=== PATIENT | female | born 1990 | race Caucasian/White ===

== ENCOUNTER 2016-04-29 04:38 | Emergency (ER) | payer OTHER ==
[2016-04-29] MEDS ORDERED: Sodium Chloride 0.9% 1000 ML 1,000 ML IV STA (05:00)
[2016-04-29] MEDS ORDERED: Sodium Chloride 0.9% 1000 ML 1,000 ML ONE (05:04)
[2016-04-29 05:08] LABS: BASOPHIL % 0.5 % (0.0-0.4); Eosinophil % 1.7 % (0.00-5.0); Granulocytes % 58.5 % (36.0-66.0); Lymphocytes % 31.3 % (24.0-44.0); Mean Cell Volume 89.5 fl (78-100); Mean Platelet Volume 10.3 fl (6-9.5); Platelet Count 307 K/mm3 (150-450); Red Blood Count 4.77 M/mm3 (4.1-5.4); Red Cell Distribution Width 12.5 % (11.5-14.0); White Blood Count 9.5 K/mm3 (4.0-10.5)
[2016-04-29 05:24] LABS: ANION GAP 16.5 MEQ/L (5-15); BLOOD UREA NITROGEN 5 mg/dL (9-20); CHLORIDE 109 mEq/L (98-107); Carbon Dioxide 26.1 mEq/L (21-32); Glucose 111 MG/DL (70-110); SODIUM 149 mEq/L (136-145)
[2016-04-29 05:26] LABS: ACETAMINOPHEN < 2.0 ug/ml (10-30)
[2016-04-29] MEDS ORDERED: Ativan 2 MG/1 ML VIAL IV ONE (05:36)
[2016-04-29] MEDS ORDERED: Klor Con 10 MEQ PO ONE ×2 (05:39→05:41)
--- NOTE | 2016-04-29 05:39 | ERPHSYRPT ---
- History of Present Illness Time Seen by Provider: 04/29/16 05:37 Source: patient Exam Limitations: no limitations Patient Subjective Stated Complaint: Pt C/O anxiety attack started approx 0400. Sts drinking ETOH from 2300 - 0200. Sts anxiety attack started after going home. Triage Nursing Assessment: Pt alert, oriented, answers all questions appropriately. Skin p/w/d, resps non-labored. Pt able to transfer self cot to bed. Lung sounds CTA bilat. Heart RRR. ABD ANT x 4 quadrants, + bowel sounds noted. Physician History: Pt C/O anxiety attack started approx 0400. Sts drinking ETOH from 0 - 0200. Sts anxiety attack started after going home. Patient is not suicidal or homicidal Timing/Duration: today Severity of Symptoms-Max: moderate Severity of Symptoms-Current: moderate Context related to: other (alcohol ingestion) Associated Symptoms: anxiety, No confused, No frustrated, No hostile, No hallucinating, No impaired concentration, No paranoid, No suicidal ideation Allergies/Adverse Reactions: No Known Drug Allergies Allergy (Unverified 04/29/16 04:48) Home Medications: No Reportable Medications [No Reported Medications] 04/29/16 [History] Immunizations Up to Date: Yes - Past Medical History Pertinent Past Medical History: Yes Psycho-Social History: Anxiety - Past Surgical History Past Surgical History: No - Social History Smoking Status: Never smoker Exposure to second hand smoke: No Drug Use: none Patient Lives Alone: No - Review of Systems Constitutional: No Fever, No Chills Eyes: No Symptoms Ears, Nose, & Throat: No Symptoms Respiratory: No Cough, No Dyspnea Cardiac: No Chest Pain, No Edema, No Syncope Abdominal/Gastrointestinal: No Abdominal Pain, No Nausea, No Vomiting, No Diarrhea Genitourinary Symptoms: No Dysuria Musculoskeletal: No Back Pain, No Neck Pain Skin: No Rash Neurological: No Dizziness, No Focal Weakness, No Sensory Changes Psychological: Anxiety Endocrine: No Symptoms All Other Systems: Reviewed and Negative - Nursing Vital Signs Nursing Vital Signs: Initial Vital Signs Temperature 99.1 F Temperature Source Oral Pulse Rate 98 Respiratory Rate 16 Blood Pressure [Right Arm] 115/74 Pain Intensity 0 - Physical Exam General Appearance: no apparent distress Eyes, Ears, Nose, Throat Exam: normal ENT inspection, moist mucous membranes Neck Exam: normal inspection, non-tender, supple Respiratory Exam: normal breath sounds, lungs clear, No respiratory distress Cardiovascular Exam: regular rate/rhythm, No edema Gastrointestinal/Abdominal Exam: soft, No tenderness, No distention Extremities Exam: normal inspection, normal range of motion, No evidence of injury, No edema Current Suicidality: denies suicide plan Neurological Exam: alert, tentmaker II-XII nml as tested, oriented x 3 Skin Exam: normal color, warm, dry, No rash SpO2: 98 Oxygen Delivery: Room Air - Course Nursing assessment & vital signs reviewed: Yes Ordered Tests: Active Orders 24 hr Category Date Time Status ACETAMINOPHEN Stat Lab 04/29/16 05:05 Completed ALCOHOL [Ethyl Alcohol,Urine] Stat Lab 04/29/16 05:48 Ordered BMP Stat Lab 04/29/16 05:05 Completed CBC W DIFF Stat Lab 04/29/16 05:05 Completed HCG QUALITATIVE,SERUM Stat Lab 04/29/16 05:05 Completed UA Stat Lab 04/29/16 05:01 Ordered Urine Triage Profile Stat Lab 04/29/16 05:01 Ordered Medication Summary Generic Name Dose Route Start Last Admin Trade Name Freq PRN Reason Stop Dose Admin Sodium Chloride 1,000 mls @ 999 mls/hr 04/29/16 05:00 04/29/16 05:05 Sodium Chloride 0.9% 1000 Ml IV 04/29/16 06:00 999 mls/hr .Q1H1M STA Administration Discontinued Medications Generic Name Dose Route Start Last Admin Trade Name Freq PRN Reason Stop Dose Admin Sodium Chloride Confirm 04/29/16 05:04 Sodium Chloride 0.9% 1000 Ml Administered 04/29/16 05:05 Dose 1,000 mls @ ud .ROUTE .STK-MED ONE Lorazepam 2 mg 04/29/16 05:36 04/29/16 05:43 Ativan 2 Mg/1 Ml Vial IV 04/29/16 05:37 2 mg STAT ONE Administration Lorazepam Confirm 04/29/16 05:41 Ativan 2 Mg/1 Ml Vial Administered 04/29/16 05:42 Dose 2 mg .ROUTE .STK-MED ONE Potassium Chloride 50 meq 04/29/16 05:39 04/29/16 05:43 Klor Con 10 Meq PO 04/29/16 05:40 50 meq STAT ONE Administration Potassium Chloride Confirm 04/29/16 05:41 Klor Con 10 Meq Administered 04/29/16 05:42 Dose 50 meq PO .STK-MED ONE Lab/Rad Data: Laboratory Result Diagrams 04/29/16 05:05 04/29/16 05:05 Laboratory Results 04/29/16 04/29/16 04/29/16 Range/Units 05:05 05:05 05:05 WBC 9.5 (4.0-10.5) K/mm3 RBC 4.77 (4.1-5.4) M/mm3 Hgb 14.8 (12.0-16.0) gm/dl Hct 42.7 (35-47) % MCV 89.5 (78-100) fl MCH 31.0 (26-32) pg MCHC 34.7 (32-36) g/dl RDW 12.5 (11.5-14.0) % Plt Count 307 (150-450) K/mm3 MPV 10.3 H (6-9.5) fl Gran % 58.5 (36.0-66.0) % Lymphocytes % 31.3 (24.0-44.0) % Monocytes % 8.0 (0.0-12.0) % Eosinophils % 1.7 (0.00-5.0) % Basophils % 0.5 (0.0-0.4) % Basophils # 0.05 (0-0.4) Sodium 149 H (136-145) mEq/L Potassium 3.0 L* (3.5-5.1) mEq/L Chloride 109 H (98-107) mEq/L Carbon Dioxide 26.1 (21-32) mEq/L Anion Gap 16.5 H (5-15) MEQ/L BUN 5 L (9-20) mg/dL Creatinine 0.95 (0.55-1.30) mg/dl Estimated GFR > 60 ML/MIN Glucose 111 H (70-110) MG/DL Calcium 8.8 (8.5-10.1) mg/dL Serum , Qual NEGATIVE (Negative) Acetaminophen < 2.0 L (10-30) ug/ml - Progress Progress: improved Counseled pt/family regarding: drug and/or alcohol abuse, lab results, diagnosis , need for follow-up, smoking cessation - Departure Time of Disposition: 05:50 Departure Disposition: Home Clinical Impression: Panic attack as reaction to stress, Hypokalemia with normal acid-base balance Condition: Stable Critical Care Time: Yes Critical Care Time(excluding separately billable procedures): 30-74 minutes Referrals: BARBARA PINON NP [Primary Care Provider] - Instructions: Anxiety -- Adult Additional Instructions: Please stay away from alcohol, or any other illicit drug use. Follow-up with your primary care physician for further management of your anxiety related problems.
[2016-04-29] MEDS ORDERED: Ativan 2 MG/1 ML VIAL ONE (05:41)
[2016-04-29 06:04] LABS: Collection Type CLEAN CATCH
[2016-04-29 06:05] LABS: COMPLETE URINE MICROSCOPIC? NO
[2016-04-29 06:44] VITALS: BP 115/78; PULSE 78; O2SAT 98
== END 2016-04-29 06:45 | disposition home or self-care (01) ==
LOC: ED 04:38
DX: F41.0 Panic disorder [episodic paroxysmal anxiety] (principal); F43.9 Reaction to severe stress, unspecified; E87.6 Hypokalemia
CPT/HCPCS: 36415; 80048; 80307; 80320; 81002; 83986; 84703; 85025; 96360; 96374; 99284; G0481; J2060; A9270-GY

== ENCOUNTER 2017-01-18 00:06 | Emergency (ER) | payer OTHER ==
[2017-01-18] MEDS ORDERED: Zofran 4 MG/2 ML VIAL IV ONE (00:24)
[2017-01-18] MEDS ORDERED: Sodium Chloride 0.9% 1000 ML 1,000 ML IV STA ×2 (00:24→01:23)
[2017-01-18] MEDS ORDERED: TORAdol 30 mg Injection IV ONE (00:24)
[2017-01-18 00:26] VITALS: PULSE 80; O2SAT 98
[2017-01-18] MEDS ORDERED: TORAdol 30 mg Injection ONE (00:29)
[2017-01-18] MEDS ORDERED: Sodium Chloride 0.9% 1000 ML 1,000 ML ONE ×2 (00:29→01:23)
[2017-01-18] MEDS ORDERED: Zofran 4 MG/2 ML VIAL ONE (00:29)
--- NOTE | 2017-01-18 00:31 | ERPHSYRPT ---
- History of Present Illness Time Seen by Provider: 01/18/17 00:20 Historian: patient Exam Limitations: no limitations Patient Subjective Stated Complaint: Abdominal pain Triage Nursing Assessment: Presents to the ED with complaints abdominal pain. Pt states pain began at approximately 1800 with mild onset, worsening when she woke up approximately an hour ago. Pt states hx of colitis. Pt states pain is similar to colitis pain, but worse pain than normal. Physician History: Pt with a History of "Colitis" woke up 1 hour ago with severe abdominal pain, nausea, denies vomiting, diarrhea, fever, chills, cough, other complaints. She states, she had Colonoscopy 4 years ago, but never had surgery, denies taking any medications except for Anxiety. Timing/Duration: hour(s) (1) Activities at Onset: none Quality: cramping Abdominal Pain Onset Location: periumbilical Pain Radiation: no radiation Severity of Pain-Max: severe Severity of Pain-Current: severe Modifying Factors: Improves With: nothing Associated Symptoms: nausea Previous symptoms: same symptoms as today, other (History of "Colitis") Allergies/Adverse Reactions: No Known Drug Allergies Allergy (Unverified 04/29/16 04:48) Hx Tetanus, Diphtheria Vaccination/Date Given: Yes Hx Influenza Vaccination/Date Given: No Hx Pneumococcal Vaccination/Date Given: No Immunizations Up to Date: No - Review of Systems Constitutional: No Symptoms Abdominal/Gastrointestinal: Abdominal Pain, Nausea All Other Systems: Reviewed and Negative - Past Medical History Pertinent Past Medical History: Yes GI Medical History: Colitis Psycho-Social History: Anxiety, Depression - Past Surgical History Past Surgical History: No Neuro Surgical History: No Pertinent History Cardiac: No Pertinent History Respiratory: No Pertinent History Gastrointestinal: No Pertinent History Genitourinary: No Pertinent History Musculoskeletal: No Pertinent History Female Surgical History: No Pertinent History - Social History Smoking Status: Never smoker Exposure to second hand smoke: No Drug Use: none Patient Lives Alone: Yes - Female History Hx Last Menstrual Period: 12/20/2016 Hx Now: No - Nursing Vital Signs Nursing Vital Signs: Initial Vital Signs Temperature 97.6 F 01/18/17 00:15 Pulse Rate 80 01/18/17 00:15 Respiratory Rate 18 01/18/17 00:15 Blood Pressure 116/60 01/18/17 00:15 O2 Sat by Pulse Oximetry 98 01/18/17 00:15 Pain Scale Pain Intensity 7 - Physical Exam General Appearance: no apparent distress Eye Exam: eyes nml inspection Ears, Nose, Throat Exam: normal ENT inspection, pharynx normal Neck Exam: normal inspection, non-tender, supple Respiratory Exam: normal breath sounds, lungs clear, airway intact, No chest tenderness Cardiovascular Exam: regular rate/rhythm, normal heart sounds, normal peripheral pulses, No murmur Gastrointestinal/Abdomen Exam: soft, normal bowel sounds, tenderness (diffuse), No distention, No mass, No guarding, No ecchymosis, No rebound, No hernia Back Exam: normal inspection, No CVA tenderness Extremity Exam: normal inspection Neurologic Exam: alert, oriented x 3, cooperative, normal mood/affect Skin Exam: normal color, warm, dry, No rash Lymphatic Exam: No adenopathy SpO2 Interpretation: normal SpO2: 98 Oxygen Delivery: Room Air - CT Exams Abdomen/Pelvis CT Interpretation: Other (Enterocolitis) Ordered Tests: Active Orders 24 hr Category Date Time Status Clean Catch Urine Specimen STAT Care 01/18/17 00:24 Active IV Insertion STAT Care 01/18/17 00:24 Active NPO (ED) STAT Care 01/18/17 00:24 Active ABDOMEN AND PELVIS W CONTRAST [CT] Stat Exams 01/18/17 00:25 Taken CBC W DIFF Stat Lab 01/18/17 00:30 Completed CMP Stat Lab 01/18/17 00:30 Completed HCG QUALITATIVE,SERUM Stat Lab 01/18/17 00:30 Completed HCG,QUALITATIVE URINE Stat Lab 01/18/17 Uncollected LIPASE Stat Lab 01/18/17 00:30 Completed Lactic Acid Stat Lab 01/18/17 00:40 Completed UA W/RFX UR CULTURE Stat Lab 01/18/17 02:10 Completed Medication Summary Generic Name Dose Route Start Last Admin Trade Name Freq PRN Reason Stop Dose Admin Sodium Chloride 1,000 mls @ 999 mls/hr 01/18/17 01:23 01/18/17 01:27 Sodium Chloride 0.9% 1000 Ml IV 01/18/17 02:23 999 mls/hr .Q1H1M STA Administration Discontinued Medications Generic Name Dose Route Start Last Admin Trade Name Freq PRN Reason Stop Dose Admin Sodium Chloride 1,000 mls @ 999 mls/hr 01/18/17 00:24 01/18/17 00:30 Sodium Chloride 0.9% 1000 Ml IV 01/18/17 01:24 999 mls/hr .Q1H1M STA Administration Sodium Chloride Confirm 01/18/17 00:29 Sodium Chloride 0.9% 1000 Ml Administered 01/18/17 00:30 Dose 1,000 mls @ ud .ROUTE .STK-MED ONE Sodium Chloride Confirm 01/18/17 01:23 Sodium Chloride 0.9% 1000 Ml Administered 01/18/17 01:24 Dose 1,000 mls @ ud .ROUTE .STK-MED ONE Ketorolac Tromethamine 30 mg 01/18/17 00:24 01/18/17 00:30 Toradol 30 Mg Injection IV 01/18/17 00:25 30 mg STAT ONE Administration Ketorolac Tromethamine Confirm 01/18/17 00:29 Toradol 30 Mg Injection Administered 01/18/17 00:30 Dose 30 mg .ROUTE .STK-MED ONE Ondansetron HCl 4 mg 01/18/17 00:24 01/18/17 00:30 Zofran 4 Mg/2 Ml Vial IV 01/18/17 00:25 4 mg STAT ONE Administration Ondansetron HCl Confirm 01/18/17 00:29 Zofran 4 Mg/2 Ml Vial Administered 01/18/17 00:30 Dose 4 mg .ROUTE .STK-MED ONE Lab/Rad Data: Laboratory Result Diagrams 01/18/17 00:30 01/18/17 00:30 Laboratory Results 01/18/17 01/18/17 01/18/17 Range/Units 02:10 00:40 00:30 WBC (4.0-10.5) K/mm3 RBC (4.1-5.4) M/mm3 Hgb (12.0-16.0) gm/dl Hct (35-47) % MCV (78-100) fl MCH (26-32) pg MCHC (32-36) g/dl RDW (11.5-14.0) % Plt Count (150-450) K/mm3 MPV (6-9.5) fl Gran % (36.0-66.0) % Lymphocytes % (24.0-44.0) % Monocytes % (0.0-12.0) % Eosinophils % (0.00-5.0) % Basophils % (0.0-0.4) % Basophils # (0-0.4) Sodium (136-145) mEq/L Potassium (3.5-5.1) mEq/L Chloride (98-107) mEq/L Carbon Dioxide (21-32) mEq/L Anion Gap (5-15) MEQ/L BUN (9-20) mg/dL Creatinine (0.55-1.30) mg/dl Estimated GFR ML/MIN Glucose (70-110) MG/DL Lactic Acid 1.4 (0.4-2.0) Calcium (8.5-10.1) mg/dL Total Bilirubin (0.2-1.0) mg/dL AST (15-37) U/L ALT (12-78) U/L Alkaline Phosphatase (46-116) U/L Serum Total Protein (6.4-8.2) gm/dL Albumin (3.4-5.0) g/dL Lipase (73-393) U/L Serum , Qual NEGATIVE (Negative) Ur Collection Type CLEAN CATCH Urine Color LT.YELLOW (YELLOW) Urine Appearance CLEAR (CLEAR) Urine pH 6.5 (5-6) Ur Specific [place] 1.010 (1.005-1.025) Urine Protein NEGATIVE (Negative) Urine Ketones NEGATIVE (NEGATIVE) Urine Blood NEGATIVE (0-5) Subhash/ul Urine Nitrite NEGATIVE (NEGATIVE) Urine Bilirubin NEGATIVE (NEGATIVE) Urine Urobilinogen NORMAL (0-1) mg/dL Ur Leukocyte Esterase NEGATIVE (NEGATIVE) Urine Culture Reflexed NO (NO) Urine Glucose NEGATIVE (NEGATIVE) mg/dL Specimen Received 01/18/17 0210 01/18/17 01/18/17 Range/Units 00:30 00:30 WBC 9.8 (4.0-10.5) K/mm3 RBC 4.62 (4.1-5.4) M/mm3 Hgb 14.4 (12.0-16.0) gm/dl Hct 41.7 (35-47) % MCV 90.3 (78-100) fl MCH 31.2 (26-32) pg MCHC 34.5 (32-36) g/dl RDW 12.5 (11.5-14.0) % Plt Count 262 (150-450) K/mm3 MPV 10.2 H (6-9.5) fl Gran % 45.4 (36.0-66.0) % Lymphocytes % 38.9 (24.0-44.0) % Monocytes % 9.7 (0.0-12.0) % Eosinophils % 5.3 H (0.00-5.0) % Basophils % 0.7 (0.0-0.4) % Basophils # 0.07 (0-0.4) Sodium 140 (136-145) mEq/L Potassium 3.4 L (3.5-5.1) mEq/L Chloride 104 (98-107) mEq/L Carbon Dioxide 28.1 (21-32) mEq/L Anion Gap 11.2 (5-15) MEQ/L BUN 8 L (9-20) mg/dL Creatinine 1.05 (0.55-1.30) mg/dl Estimated GFR > 60 ML/MIN Glucose 103 (70-110) MG/DL Lactic Acid (0.4-2.0) Calcium 9.2 (8.5-10.1) mg/dL Total Bilirubin 0.40 (0.2-1.0) mg/dL AST 15 (15-37) U/L ALT 12 (12-78) U/L Alkaline Phosphatase 66 (46-116) U/L Serum Total Protein 7.5 (6.4-8.2) gm/dL Albumin 4.4 (3.4-5.0) g/dL Lipase 230 (73-393) U/L Serum , Qual (Negative) Ur Collection Type Urine Color (YELLOW) Urine Appearance (CLEAR) Urine pH (5-6) Ur Specific [place] (1.005-1.025) Urine Protein (Negative) Urine Ketones (NEGATIVE) Urine Blood (0-5) Subhash/ul Urine Nitrite (NEGATIVE) Urine Bilirubin (NEGATIVE) Urine Urobilinogen (0-1) mg/dL Ur Leukocyte Esterase (NEGATIVE) Urine Culture Reflexed (NO) Urine Glucose (NEGATIVE) mg/dL Specimen Received - Progress Progress: improved Progress Note: 01/18/17 02:24 Afebrile, pain improved, did not vomit, feels better altogether. I discussed out findings with her and suggested close follow up with her PCP and Gastroenterology, she agreed, will return if any worsening, vomiting or high fever> 102 F. - Departure Time of Disposition: 02:25 Departure Disposition: Home Clinical Impression: Enterocolitis Condition: Stable Critical Care Time: No Referrals: CARMEN TAFOYA [Primary Care Provider] - Instructions: Abdominal Pain-Adult, Crohn's Disease Additional Instructions: Rest x 2-3 days, drink plenty of fluids, return if severe pain, vomiting, fever > 102F! Follow up with your PCP in 2-3 days! Prescriptions: Dicyclomine HCl 20 mg [Bentyl 20 mg] 20 mg PO TID PRN PRN 5 Days #15 tablet PRN Reason: Pain
[2017-01-18 00:41] LABS: BASOPHIL % 0.7 % (0.0-0.4); Eosinophil % 5.3 % (0.00-5.0); Granulocytes % 45.4 % (36.0-66.0); Lymphocytes % 38.9 % (24.0-44.0); Mean Cell Volume 90.3 fl (78-100); Mean Corpuscular Hemoglobin 31.2 pg (26-32); Mean Platelet Volume 10.2 fl (6-9.5); Monocytes % 9.7 % (0.0-12.0); Platelet Count 262 K/mm3 (150-450); Red Blood Count 4.62 M/mm3 (4.1-5.4); Red Cell Distribution Width 12.5 % (11.5-14.0); White Blood Count 9.8 K/mm3 (4.0-10.5)
[2017-01-18 00:58] LABS: ALBUMIN 4.4 g/dL (3.4-5.0); ALKALINE PHOSPHATASE 66 U/L (46-116); ANION GAP 11.2 MEQ/L (5-15); BLOOD UREA NITROGEN 8 mg/dL (9-20); CHLORIDE 104 mEq/L (98-107); Carbon Dioxide 28.1 mEq/L (21-32); Glucose 103 MG/DL (70-110); LIPASE 230 U/L (73-393); Potassium 3.4 mEq/L (3.5-5.1); SGOT/AST 15 U/L (15-37); SGPT/ALT 12 U/L (12-78); SODIUM 140 mEq/L (136-145); Total Protein 7.5 gm/dL (6.4-8.2)
[2017-01-18 02:11] LABS: ADD URINE CULTURE? NO (NO); Bilirubin NEGATIVE (NEGATIVE); Blood NEGATIVE Ery/ul (0-5); COMPLETE URINE MICROSCOPIC? NO; Collection Type CLEAN CATCH; Glucose NEGATIVE (NEGATIVE); Leukocyte Esterase NEGATIVE (NEGATIVE)
[2017-01-18 02:40] VITALS: BP 112/70
--- NOTE | 2017-01-18 08:45 | XRAY ---
Indication: Left lower pelvic pain. History colitis. Multiple contiguous axial images obtained through the abdomen and pelvis using 80 cc Isovue 370 contrast only. Comparison: None Lung bases clear. Heart is not enlarged. Noncontrasted stomach and bowel loops appear nonobstructed. Normal appendix. There is mild wall thickening of the left hemicolon with minimal stranding favoring colitis. No free fluid/air. Remaining liver, gallbladder, pancreas, spleen, adrenal glands, kidneys, ureters, bladder, uterus, and aorta appear unremarkable. No pathologic retroperitoneal lymphadenopathy. Osseous structures intact. No ventral/inguinal hernias. Impression: Mild left hemicolon wall thickening with minimal stranding favoring colitis. Comment: Preliminary interpretation was made by [facility]. No critical discrepancy. CT DI 9.69
== END 2017-01-18 02:40 | disposition home or self-care (01) ==
LOC: ED 00:06
DX: K52.9 Noninfective gastroenteritis and colitis, unspecified (principal); R10.9 Unspecified abdominal pain; R11.0 Nausea
CPT/HCPCS: 36000; 36415; 74177; 80053; 81002; 83605; 83690; 84703; 85025; 96360; 96361; 96374; 96375; 99283; J1885; J2405

== ENCOUNTER 2017-04-13 18:44 | Emergency (ER) | payer OTHER ==
[2017-04-13] MEDS ORDERED: Zofran 4 MG/2 ML VIAL IV ONE (19:27)
[2017-04-13] MEDS ORDERED: SUBLIMAZE 100 MCG/2 ML IV ONE (19:27)
[2017-04-13] MEDS ORDERED: Sodium Chloride 0.9% 500 ML 500 ML IV SCH (19:45)
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
[2017-04-13 19:51] LABS: BASOPHIL % 0.6 % (0.0-0.4); Basophil (Absolute #) 0.07 (0-0.4); Eosinophil % 1.4 % (0.00-5.0); Eosinophil (Absolute #) 0.16 (0-0.5); Granulocytes % 73.1 % (36.0-66.0); Hematocrit 44.3 % (35-47); Hemoglobin 15.4 gm/dl (12.0-16.0); Lymphocyte (Absolute #) 1.98 (1.0-4.6); Lymphocytes % 17.2 % (24.0-44.0); Mean Corpuscular Hemoglobin 31.6 pg (26-32); Mean Corpuscular Hgb Concent. 34.8 g/dl (32-36); Mean Platelet Volume 9.7 fl (6-9.5); Monocyte (Absolute #) 0.89 (0.0-1.3); Monocytes % 7.7 % (0.0-12.0); Platelet Count 271 K/mm3 (150-450); Red Blood Count 4.87 M/mm3 (4.1-5.4); Red Cell Distribution Width 12.9 % (11.5-14.0); White Blood Count 11.5 K/mm3 (4.0-10.5)
[2017-04-13] MEDS ORDERED: Zofran 4 MG/2 ML VIAL ONE (19:52)
[2017-04-13] MEDS ORDERED: SUBLIMAZE 100 MCG/2 ML ONE (19:52)
[2017-04-13] MEDS ORDERED: Sodium Chloride 0.9% 500 ML 500 ML IV ONE (19:52)
[2017-04-13 19:54] LABS: Appearance CLEAR (CLEAR); Bilirubin NEGATIVE (NEGATIVE); Blood NEGATIVE Ery/ul (0-5); Glucose NEGATIVE (NEGATIVE); Ketones NEGATIVE (NEGATIVE); Leukocyte Esterase NEGATIVE (NEGATIVE); Nitrite NEGATIVE (NEGATIVE); Protein,Urine Dip NEGATIVE (Negative); Specific Gravity 1.005 (1.005-1.025); Urobilinogen NORMAL mg/dL (0-1)
[2017-04-13 20:09] LABS: ANION GAP 19.3 MEQ/L (5-15); BLOOD UREA NITROGEN 4 mg/dl (7-17); CHLORIDE 105 mEq/L (98-107); Calcium 9.9 mg/dL (8.4-10.2); Carbon Dioxide 24 mmol/L (22-30); Creatinine 1 0.66 mg/dl (0.52-1.04); Glucose 97 mg/dL (74-106); Potassium 3.6 mmol/L (3.5-5.1); SODIUM 144 mmol/L (137-145)
[2017-04-13 21:55] VITALS: O2SAT 97
[2017-04-13] MEDS ORDERED: TORAdol 30 mg Injection ONE (21:55)
[2017-04-13] MEDS ORDERED: TORAdol 30 mg Injection IV ONE (21:58)
[2017-04-13 22:00] VITALS: BP 112/80; PULSE 86
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
== END 2017-04-13 22:25 | disposition home or self-care (01) ==
LOC: ED 18:44
DX: R51 Headache (principal); S00.03XA Contusion of scalp, initial encounter; S20.219A Contusion of unspecified front wall of thorax, initial encounter; R07.9 Chest pain, unspecified; V53.5XXA Driver of pick-up truck or van injured in collision with car, pick-up truck or van in traffic accident, initial encounter
CPT/HCPCS: 36000; 36415; 70450; 71260; 80048; 81002; 84703; 85025; 96374; 96375; 99283; J1885; J2405; J3010

== ENCOUNTER 2017-04-28 01:45 | Emergency (ER) | payer OTHER ==
[2017-04-28] MEDS ORDERED: Sodium Chloride 0.9% 1000 ML 1,000 ML IV STA (01:54)
[2017-04-28] MEDS ORDERED: Sodium Chloride 0.9% 1000 ML 1,000 ML ONE (01:58)
[2017-04-28 02:36] LABS: BASOPHIL % 0.8 % (0.0-0.4); Basophil (Absolute #) 0.05 (0-0.4); Eosinophil % 4.2 % (0.00-5.0); Eosinophil (Absolute #) 0.27 (0-0.5); Granulocyte Absolute (ANC) 4.24 (1.4-6.9); Granulocytes % 65.9 % (36.0-66.0); Hematocrit 35.9 % (35-47); Hemoglobin 12.6 gm/dl (12.0-16.0); Lymphocyte (Absolute #) 1.35 (1.0-4.6); Mean Cell Volume 90.4 fl (78-100); Mean Corpuscular Hemoglobin 31.7 pg (26-32); Mean Corpuscular Hgb Concent. 35.1 g/dl (32-36); Mean Platelet Volume 10.1 fl (6-9.5); Monocyte (Absolute #) 0.52 (0.0-1.3); Monocytes % 8.1 % (0.0-12.0); Platelet Count 231 K/mm3 (150-450); Red Blood Count 3.97 M/mm3 (4.1-5.4); Red Cell Distribution Width 12.5 % (11.5-14.0); White Blood Count 6.4 K/mm3 (4.0-10.5)
[2017-04-28 02:49] LABS: ALBUMIN 3.6 g/dL (3.5-5.0); ALKALINE PHOSPHATASE 49 U/L (38-126); ANION GAP 12.2 MEQ/L (5-15); BLOOD UREA NITROGEN 5 mg/dL (7-17); CHLORIDE 110 mmol/L (98-107); Calcium 7.9 mg/dL (8.4-10.2); Carbon Dioxide 25 mmol/L (22-30); Creatinine 1 0.63 mg/dL (0.52-1.04); ETHYL ALCOHOL 105 mg/dL (0-9); Glucose 87 mg/dL (74-106); Potassium 3.8 mmol/L (3.5-5.1); SGOT/AST 17 U/L (14-36); SGPT/ALT 7 U/L (0-35); SODIUM 144 mmol/L (137-145); Total Protein 6.1 g/dL (6.3-8.2)
[2017-04-28 02:55] LABS: SALICYLATE < 1.0 mg/dL (2-20)
[2017-04-28 02:58] LABS: Amphetamine,Urine NEGATIVE (NEGATIVE); Barbiturate,Urine NEGATIVE (NEGATIVE); Benzodiazepine,Urine NEGATIVE (NEGATIVE); Cocaine,Urine NEGATIVE (NEGATIVE); Methadone,Urine NEGATIVE (NEGATIVE); Opiate,Urine NEGATIVE (NEGATIVE); PCP,Urine NEGATIVE (NEGATIVE); THC,Urine NEGATIVE (NEGATIVE)
[2017-04-28 03:12] VITALS: BP 122/74; O2SAT 100
--- NOTE | 2017-04-28 03:21 | ERPHSYRPT ---
- History of Present Illness Time Seen by Provider: 04/28/17 03:17 Source: patient, EMS Exam Limitations: no limitations Patient Subjective Stated Complaint: Intoxicated and vomiting Triage Nursing Assessment: Pt is A&O x3, came in via EMS with alcohol intoxication due to severe vomiting which brought on a panic attack, vitals wnl Physician History: c/o vomiting, Patient has been drinking ETOH . c/o panic attack Timing/Duration: today Associated Symptoms: vomiting Allergies/Adverse Reactions: lactase [From [employer]] Adverse Reaction (Verified 04/28/17 01:47) Home Medications: Venlafaxine HCl [Venlafaxine HCl ER] 75 mg DAILY 04/13/17 [History] Hx Tetanus, Diphtheria Vaccination/Date Given: Yes Hx Influenza Vaccination/Date Given: No Hx Pneumococcal Vaccination/Date Given: No Immunizations Up to Date: Yes - Review of Systems Constitutional: No Fever, No Chills Eyes: No Symptoms Ears, Nose, & Throat: No Symptoms Respiratory: No Cough, No Dyspnea Cardiac: No Chest Pain, No Edema, No Syncope Abdominal/Gastrointestinal: Vomiting, No Abdominal Pain, No Nausea, No Diarrhea Genitourinary Symptoms: No Dysuria Musculoskeletal: No Back Pain, No Neck Pain Skin: No Rash Neurological: No Dizziness, No Focal Weakness, No Sensory Changes Psychological: Anxiety, No Alcohol Abuse Endocrine: No Symptoms All Other Systems: Reviewed and Negative - Past Medical History Pertinent Past Medical History: Yes GI Medical History: Colitis Psycho-Social History: Anxiety, Depression - Past Surgical History Past Surgical History: No Neuro Surgical History: No Pertinent History Cardiac: No Pertinent History Respiratory: No Pertinent History Gastrointestinal: No Pertinent History Genitourinary: No Pertinent History Musculoskeletal: No Pertinent History Female Surgical History: No Pertinent History - Social History Smoking Status: Never smoker Exposure to second hand smoke: No Drug Use: none Patient Lives Alone: Yes - Female History Hx Last Menstrual Period: 04/27/2017 Hx Now: No - Nursing Vital Signs Nursing Vital Signs: Initial Vital Signs Temperature 98.2 F 04/28/17 01:47 Pulse Rate 86 04/28/17 01:47 Blood Pressure 113/83 04/28/17 01:47 O2 Sat by Pulse Oximetry 100 04/28/17 01:47 Pain Scale Pain Intensity 0 - Physical Exam General Appearance: anxiety Eye Exam: PERRL/EOMI Ears, Nose, Throat Exam: normal ENT inspection Neck Exam: normal inspection Respiratory Exam: normal breath sounds Cardiovascular Exam: regular rate/rhythm Gastrointestinal/Abdomen Exam: soft Extremity Exam: normal inspection Neurologic Exam: alert Skin Exam: normal color SpO2: 100 Oxygen Delivery: Room Air - Course Nursing assessment & vital signs reviewed: Yes Ordered Tests: Active Orders 24 hr Category Date Time Status CBC W DIFF Stat Lab 04/28/17 02:29 Completed CMP Stat Lab 04/28/17 02:29 Completed ETHYL ALCOHOL Stat Lab 04/28/17 02:29 Completed HCG QUALITATIVE,SERUM Stat Lab 04/28/17 02:29 Completed SALICYLATE Stat Lab 04/28/17 02:29 Completed Urine Triage Profile Stat Lab 04/28/17 02:38 Completed Medication Summary Discontinued Medications Generic Name Dose Route Start Last Admin Trade Name Freq PRN Reason Stop Dose Admin Sodium Chloride 1,000 mls @ 999 mls/hr 04/28/17 01:54 04/28/17 01:57 Sodium Chloride 0.9% 1000 Ml IV 04/28/17 02:54 999 mls/hr .Q1H1M STA Administration Sodium Chloride Confirm 04/28/17 01:58 Sodium Chloride 0.9% 1000 Ml Administered 04/28/17 01:59 Dose 1,000 mls @ ud .ROUTE .STK-MED ONE Lab/Rad Data: Laboratory Result Diagrams 04/28/17 02:29 04/28/17 02:29 Laboratory Results 04/28/17 04/28/17 04/28/17 Range/Units 02:38 02:29 02:29 WBC (4.0-10.5) K/mm3 RBC (4.1-5.4) M/mm3 Hgb (12.0-16.0) gm/dl Hct (35-47) % MCV (78-100) fl MCH (26-32) pg MCHC (32-36) g/dl RDW (11.5-14.0) % Plt Count (150-450) K/mm3 MPV (6-9.5) fl Gran % (36.0-66.0) % Eos # (Auto) (0-0.5) Absolute Lymphs (auto) (1.0-4.6) Absolute Monos (auto) (0.0-1.3) Lymphocytes % (24.0-44.0) % Monocytes % (0.0-12.0) % Eosinophils % (0.00-5.0) % Basophils % (0.0-0.4) % Absolute Granulocytes (1.4-6.9) Basophils # (0-0.4) Sodium 144 (137-145) mmol/L Potassium 3.8 (3.5-5.1) mmol/L Chloride 110 H (98-107) mmol/L Carbon Dioxide 25 (22-30) mmol/L Anion Gap 12.2 (5-15) MEQ/L BUN 5 L (7-17) mg/dL Creatinine 0.63 (0.52-1.04) mg/dL Estimated GFR > 60 ML/MIN Glucose 87 (74-106) mg/dL Calcium 7.9 L (8.4-10.2) mg/dL Total Bilirubin 0.20 (0.2-1.3) mg/dL AST 17 (14-36) U/L ALT 7 (0-35) U/L Alkaline Phosphatase 49 (38-126) U/L Serum Total Protein 6.1 L (6.3-8.2) g/dL Albumin 3.6 (3.5-5.0) g/dL Serum , Qual NEGATIVE (Negative) Salicylates < 1.0 L (2-20) mg/dL Urine Opiates Level NEGATIVE (NEGATIVE) Ur Methadone NEGATIVE (NEGATIVE) Urine Barbiturates NEGATIVE (NEGATIVE) Ur Phencyclidine (PCP) NEGATIVE (NEGATIVE) Urine Amphetamine NEGATIVE (NEGATIVE) U Benzodiazepine Level NEGATIVE (NEGATIVE) Urine Cocaine NEGATIVE (NEGATIVE) Urine Marijuana (THC) NEGATIVE (NEGATIVE) Ethyl Alcohol 105 H (0-9) mg/dL 04/28/17 Range/Units 02:29 WBC 6.4 (4.0-10.5) K/mm3 RBC 3.97 L (4.1-5.4) M/mm3 Hgb 12.6 (12.0-16.0) gm/dl Hct 35.9 (35-47) % MCV 90.4 (78-100) fl MCH 31.7 (26-32) pg MCHC 35.1 (32-36) g/dl RDW 12.5 (11.5-14.0) % Plt Count 231 (150-450) K/mm3 MPV 10.1 H (6-9.5) fl Gran % 65.9 (36.0-66.0) % Eos # (Auto) 0.27 (0-0.5) Absolute Lymphs (auto) 1.35 (1.0-4.6) Absolute Monos (auto) 0.52 (0.0-1.3) Lymphocytes % 21.0 L (24.0-44.0) % Monocytes % 8.1 (0.0-12.0) % Eosinophils % 4.2 (0.00-5.0) % Basophils % 0.8 (0.0-0.4) % Absolute Granulocytes 4.24 (1.4-6.9) Basophils # 0.05 (0-0.4) Sodium (137-145) mmol/L Potassium (3.5-5.1) mmol/L Chloride (98-107) mmol/L Carbon Dioxide (22-30) mmol/L Anion Gap (5-15) MEQ/L BUN (7-17) mg/dL Creatinine (0.52-1.04) mg/dL Estimated GFR ML/MIN Glucose (74-106) mg/dL Calcium (8.4-10.2) mg/dL Total Bilirubin (0.2-1.3) mg/dL AST (14-36) U/L ALT (0-35) U/L Alkaline Phosphatase (38-126) U/L Serum Total Protein (6.3-8.2) g/dL Albumin (3.5-5.0) g/dL Serum , Qual (Negative) Salicylates (2-20) mg/dL Urine Opiates Level (NEGATIVE) Ur Methadone (NEGATIVE) Urine Barbiturates (NEGATIVE) Ur Phencyclidine (PCP) (NEGATIVE) Urine Amphetamine (NEGATIVE) U Benzodiazepine Level (NEGATIVE) Urine Cocaine (NEGATIVE) Urine Marijuana (THC) (NEGATIVE) Ethyl Alcohol (0-9) mg/dL - Progress Progress: improved Counseled pt/family regarding: drug and/or alcohol abuse, lab results, diagnosis , need for follow-up - Departure Time of Disposition: 03:20 Departure Disposition: Home Clinical Impression: Panic attack as reaction to stress Alcohol intoxication Qualifiers: Complication of substance-induced condition: uncomplicated Qualified Code(s): F10.920 - Alcohol use, unspecified with intoxication, uncomplicated Condition: Stable Critical Care Time: No Referrals: CARMEN TAFOYA [Primary Care Provider] - Instructions: Alcohol Abuse and Alcoholism (DC), Anxiety, Adult (DC), Panic Disorder Additional Instructions: ANNMARIE HUDDLESTON was seen on 04/28/17 n the Emergency Room. At that time you were treated for an emergent condition, during your visit Laboratory, Radiology and/or other procedures may have been ordered. It is very important that you follow-up with your Primary Care Physician CARMEN TAFOYA within the next 24- 48 hours to review your Emergency Room visit and the final results of testing that was ordered. Some test results such as Urine Cultures, Blood Cultures, and other cultures if ordered will not be finalized for 24-48 hours. If you do not have a Primary Care Provider please call the medical records department at [phone] to obtain a copy of your results or you may sign into our patient portal to obtain these results by visiting us @ [email or web address] and completing the following steps: 1. Click on the Patient Portal link 2. Click the Patient Self Enrollment Link to complete the enrollment form and entering your 3. Once the enrollment form is completed you will receive an email with a temporary ID and password at the email address you provided. 4. Next choose a user name and password. Your user name must be at least 4 characters long and your password must be at least 4 characters long. 5. Choose a security question from the list and provide your answer to the question. If you already have signed into the Health Portal you may access your Health Care Information 28/08 by the following steps: 1. Login to our website @ [email or web address] 2. Enter your original user name and password. FAQS The [facility] Health Portal is an online tool that contains your Lab Results, Radiology Reports, Visit History, Discharge Instructions and Health Summary Lab and Radiology Results will not be available for 72 hours on the portal. The Portal is a secure site, passwords are encryted and URLs are re-written so they cannot be copied and pasted. You and authorized family members are the only ones who can access your Portal. Also there is a timeout feature that protects your information if you leave the Portal page open. If you have technical difficulty please use the Contact Us link on the page this will allow you to submit any questions you have regarding the Portal or you may contact the Medical Record Department at [phone].
[2017-04-28 03:30] VITALS: PULSE 76
== END 2017-04-28 03:32 | disposition home or self-care (01) ==
LOC: ED 01:45
DX: F43.0 Acute stress reaction (principal); F10.920 Alcohol use, unspecified with intoxication, uncomplicated; R11.10 Vomiting, unspecified
CPT/HCPCS: 36415; 80053; 80307; 84703; 85025; 99283; G0480

== ENCOUNTER 2017-09-28 13:28 | Emergency (ER) | payer OTHER ==
[2017-09-28] MEDS ORDERED: Sodium Chloride 0.9% 1000 ML 1,000 ML IV STA (14:00)
[2017-09-28] MEDS ORDERED: Sodium Chloride 0.9% 1000 ML 1,000 ML ONE (14:04)
--- NOTE | 2017-09-28 14:05 | ERPHSYRPT ---
- History of Present Illness Time Seen by Provider: 09/28/17 13:50 Source: patient Exam Limitations: no limitations Patient Subjective Stated Complaint: Patient states she has been having cramping to lower abdomen for 4 days. Patient denies no spotting or bleeding. Patient states she doesn't feel like she is . Patient states her breast don't hurt anymore, smells aren't bothering her, and no more morning sickness. Triage Nursing Assessment: Patient ambulating into ER. Patient states she has been having cramping to lower abdomen for 4 days. Patient denies no spotting or bleeding. Patient states she doesn't feel like she is . Patient states her breast don't hurt anymore, smells aren't bothering her, and no more morning sickness. Abdonmen soft and non-tender. Skin pink, warm and dry. Physician History: 27 y/o female who is 11 weeks comes to the ER with complaints of 4 days of abdominal cramping and multiple episodes of nausea with vomiting. Today was the first day she felt better. Pt describes the pain as cramping, intermittent, as high as 6/10, worse with walking and pt has not taken any pain meds. Pt denies any fever, chills, diarrhea, constipation, vaginal bleeding or urinary symptoms. Timing/Duration: day(s) Activites at Onset: none Quality: cramping Onset Location: suprapubic Pain Radiation: none Severity of Pain-Max: moderate Severity of Pain-Current: none Sexual intercourse history: non-contributory Associated Symptoms: nausea, vomiting, Allergies/Adverse Reactions: lactase [From Dairy Aid] Adverse Reaction (Verified 04/28/17 01:47) Home Medications: Venlafaxine HCl [Venlafaxine HCl ER] 75 mg DAILY 04/13/17 [History] Hx Tetanus, Diphtheria Vaccination/Date Given: Yes Hx Influenza Vaccination/Date Given: Yes Hx Pneumococcal Vaccination/Date Given: No - Review of Systems Constitutional: No Fever, No Chills Eyes: No Symptoms Ears, Nose, & Throat: No Symptoms Respiratory: No Cough, No Dyspnea Cardiac: No Chest Pain, No Edema, No Syncope Abdominal/Gastrointestinal: Abdominal Pain, Nausea, Vomiting, No Diarrhea Genitourinary Symptoms: , No Dysuria, No Frequency, No Hematuria, No Urgency, No Vaginal Bleeding, No Vaginal Discharge Musculoskeletal: No Back Pain, No Neck Pain Skin: No Rash Neurological: No Dizziness, No Focal Weakness, No Sensory Changes Psychological: No Symptoms Endocrine: No Symptoms All Other Systems: Reviewed and Negative - Past Medical History Pertinent Past Medical History: Yes GI Medical History: Colitis Psycho-Social History: Anxiety, Depression - Past Surgical History Past Surgical History: No Neuro Surgical History: No Pertinent History Cardiac: No Pertinent History Respiratory: No Pertinent History Gastrointestinal: No Pertinent History Genitourinary: No Pertinent History Musculoskeletal: No Pertinent History Female Surgical History: No Pertinent History - Social History Smoking Status: Never smoker Exposure to second hand smoke: No Drug Use: none Patient Lives Alone: Yes - Female History Hx Last Menstrual Period: unknown Hx Now: Yes (11 weeks) Expected Date of Delivery: 04/15/18 - Nursing Vital Signs Nursing Vital Signs: Initial Vital Signs Temperature 98.3 F 09/28/17 13:36 Pulse Rate 85 09/28/17 13:36 Respiratory Rate 18 09/28/17 13:36 Blood Pressure 118/68 09/28/17 13:36 O2 Sat by Pulse Oximetry 99 09/28/17 13:36 Pain Scale Pain Intensity 0 - Physical Exam General Appearance: no apparent distress, alert Eye Exam: PERRL/EOMI, eyes nml inspection Ears, Nose, Throat Exam: normal ENT inspection, TMs normal, pharynx normal, moist mucous membranes Neck Exam: normal inspection, non-tender, supple, full range of motion Respiratory Exam: normal breath sounds, lungs clear, No respiratory distress Cardiovascular Exam: regular rate/rhythm, normal heart sounds, normal peripheral pulses Gastrointestinal/Abdomen Exam: soft, normal bowel sounds, No tenderness, No distention, No mass Pelvic Exam: not done Back Exam: normal inspection, normal range of motion, No CVA tenderness, No vertebral tenderness Extremity Exam: normal inspection, normal range of motion, pelvis stable Neurologic Exam: alert, oriented x 3, 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, 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, normal mood/affect, sensation nml, No motor deficits Skin Exam: normal color, warm, dry Lymphatic Exam: No adenopathy SpO2: 99 Oxygen Delivery: Room Air - Course Nursing assessment & vital signs reviewed: Yes Ordered Tests: Active Orders 24 hr Category Date Time Status IV Insertion STAT Care 09/28/17 14:00 Active OB <14 WKS 1ST GESTATION [US] Stat Exams 09/28/17 14:00 Completed CBC W DIFF Stat Lab 09/28/17 14:20 Completed CMP Stat Lab 09/28/17 14:20 Results HCG, Quantitative (Inhouse) Stat Lab 09/28/17 14:20 Results UA W/RFX UR CULTURE Stat Lab 09/28/17 14:10 Completed Medication Summary Discontinued Medications Generic Name Dose Route Start Last Admin Trade Name Cesar PRN Reason Stop Dose Admin Sodium Chloride 1,000 mls @ 999 mls/hr 09/28/17 14:00 09/28/17 14:05 Sodium Chloride 0.9% 1000 Ml IV 09/28/17 15:00 999 mls/hr .Q1H1M STA Administration Sodium Chloride Confirm 09/28/17 14:04 Sodium Chloride 0.9% 1000 Ml Administered 09/28/17 14:05 Dose 1,000 mls @ ud .ROUTE .STK-MED ONE Lab/Rad Data: Laboratory Result Diagrams 09/28/17 14:20 09/28/17 14:20 Laboratory Results 09/28/17 09/28/17 09/28/17 Range/Units 14:20 14:20 14:10 WBC 8.7 (4.0-10.5) K/mm3 RBC 4.29 (4.1-5.4) M/mm3 Hgb 13.9 (12.0-16.0) gm/dl Hct 38.8 (35-47) % MCV 90.4 (78-100) fl MCH 32.4 H (26-32) pg MCHC 35.8 (32-36) g/dl RDW 13.0 (11.5-14.0) % Plt Count 243 (150-450) K/mm3 MPV 10.1 H (6-9.5) fl Gran % 73.9 H (36.0-66.0) % Eos # (Auto) 0.12 (0-0.5) Absolute Lymphs (auto) 1.49 (1.0-4.6) Absolute Monos (auto) 0.62 (0.0-1.3) Lymphocytes % 17.2 L (24.0-44.0) % Monocytes % 7.2 (0.0-12.0) % Eosinophils % 1.4 (0.00-5.0) % Basophils % 0.3 (0.0-0.4) % Absolute Granulocytes 6.40 (1.4-6.9) Basophils # 0.03 (0-0.4) Sodium 138 (137-145) mmol/L Potassium 3.5 (3.5-5.1) mmol/L Chloride 105 (98-107) mmol/L Carbon Dioxide 22 (22-30) mmol/L Anion Gap 14.4 (5-15) MEQ/L BUN 7 (7-17) mg/dL Creatinine 0.59 (0.52-1.04) mg/dL Estimated GFR > 60.0 ML/MIN Glucose 77 (74-106) mg/dL Calcium 9.3 (8.4-10.2) mg/dL Total Bilirubin 0.40 (0.2-1.3) mg/dL AST 16 (14-36) U/L ALT 7 (0-35) U/L Alkaline Phosphatase 46 (38-126) U/L Serum Total Protein 7.3 (6.3-8.2) g/dL Albumin 4.3 (3.5-5.0) g/dL Beta HCG, Quant Pending Ur Collection Type CCMS Urine Color YELLOW (YELLOW) Urine Appearance CLEAR (CLEAR) Urine pH 5.0 (5-6) Ur Specific [place] 1.015 (1.005-1.025) Urine Protein NEGATIVE (Negative) Urine Ketones NEGATIVE (NEGATIVE) Urine Blood NEGATIVE (0-5) Subhash/ul Urine Nitrite NEGATIVE (NEGATIVE) Urine Bilirubin NEGATIVE (NEGATIVE) Urine Urobilinogen NORMAL (0-1) mg/dL Ur Leukocyte Esterase NEGATIVE (NEGATIVE) Urine Culture Reflexed NO (NO) Urine Glucose NEGATIVE (NEGATIVE) mg/dL Specimen Received 09-28-17 1415 - Progress Progress: improved Progress Note: 09/28/17 15:19 The OB ultrasound shows a normal 12 week . The labs are unremarkable. The HCG is consistent with a 12 week . Pt will be discharged and will F /U with her OB doctor. - Departure Time of Disposition: 15:20 Departure Disposition: Home Clinical Impression: Qualifiers: Weeks of gestation: 12 weeks Qualified Code(s): Z3A.12 - 12 weeks gestation of Condition: Stable Critical Care Time: No Referrals: NEHAL YANES MD [Primary Care Provider] - Instructions: Symptoms Additional Instructions: Return to the ER if you should continue to have abdominal pain, nausea, vomiting or urinary symptoms. Follow up with your OB doctor in the next few days.
[2017-09-28 14:17] LABS: Appearance CLEAR (CLEAR); Bilirubin NEGATIVE (NEGATIVE); Blood NEGATIVE Ery/ul (0-5); Glucose NEGATIVE (NEGATIVE); Ketones NEGATIVE (NEGATIVE); Leukocyte Esterase NEGATIVE (NEGATIVE); Nitrite NEGATIVE (NEGATIVE); Protein,Urine Dip NEGATIVE (Negative); Specific Gravity 1.015 (1.005-1.025); Urobilinogen NORMAL mg/dL (0-1)
[2017-09-28 14:33] LABS: BASOPHIL % 0.3 % (0.0-0.4); Basophil (Absolute #) 0.03 (0-0.4); Eosinophil % 1.4 % (0.00-5.0); Eosinophil (Absolute #) 0.12 (0-0.5); Granulocytes % 73.9 % (36.0-66.0); Hematocrit 38.8 % (35-47); Hemoglobin 13.9 gm/dl (12.0-16.0); Lymphocyte (Absolute #) 1.49 (1.0-4.6); Lymphocytes % 17.2 % (24.0-44.0); Mean Cell Volume 90.4 fl (78-100); Mean Corpuscular Hemoglobin 32.4 pg (26-32); Mean Corpuscular Hgb Concent. 35.8 g/dl (32-36); Mean Platelet Volume 10.1 fl (6-9.5); Monocyte (Absolute #) 0.62 (0.0-1.3); Monocytes % 7.2 % (0.0-12.0); Platelet Count 243 K/mm3 (150-450); Red Blood Count 4.29 M/mm3 (4.1-5.4); White Blood Count 8.7 K/mm3 (4.0-10.5)
--- NOTE | 2017-09-28 15:11 | XRAY ---
Indication: Cramping. Two-dimensional transabdominal OB ultrasound performed. Comparison: August 28, 2017. Again there is a single viable intrauterine with mean crown-rump length measuring 5.46 cm corresponding to 12 weeks 0 days. heart rate 159 bpm. No abnormal subchorionic fluid. Left and right ovaries unremarkable. No suspicious adnexal mass or free fluid. Impression: Again single viable intrauterine today measuring 12 weeks 0 days. Normal progression in . No new/acute findings.
[2017-09-28 15:12] VITALS: BP 92/74; PULSE 67
[2017-09-28 15:22] VITALS: O2SAT 99
[2017-09-28 15:23] LABS: ALBUMIN 4.3 g/dL (3.5-5.0); ALKALINE PHOSPHATASE 46 U/L (38-126); ANION GAP 14.4 MEQ/L (5-15); BLOOD UREA NITROGEN 7 mg/dL (7-17); CHLORIDE 105 mmol/L (98-107); Calcium 9.3 mg/dL (8.4-10.2); Carbon Dioxide 22 mmol/L (22-30); Creatinine 1 0.59 mg/dL (0.52-1.04); Glucose 77 mg/dL (74-106); Potassium 3.5 mmol/L (3.5-5.1); SGOT/AST 16 U/L (14-36); SGPT/ALT 7 U/L (0-35); SODIUM 138 mmol/L (137-145); Total Protein 7.3 g/dL (6.3-8.2)
[2017-09-28 15:47] LABS: HCG, Quantitative (Inhouse) 144630 mIU/ml
== END 2017-09-28 15:38 | disposition home or self-care (01) ==
LOC: ED 13:28
DX: O26.891 Other specified pregnancy related conditions, first trimester (principal); Z3A.12 12 weeks gestation of pregnancy; R10.9 Unspecified abdominal pain; R11.2 Nausea with vomiting, unspecified
CPT/HCPCS: 36000; 36415; 76801; 80053; 81002; 84702; 85025; 96360; 99284

== ENCOUNTER 2018-04-06 04:13 | Inpatient (IN) | payer OTHER ==
[2018-04-06 05:05] LABS: Amphetamine,Urine NEGATIVE (NEGATIVE); Barbiturate,Urine NEGATIVE (NEGATIVE); Benzodiazepine,Urine NEGATIVE (NEGATIVE); Cocaine,Urine NEGATIVE (NEGATIVE); Methadone,Urine NEGATIVE (NEGATIVE); Opiate,Urine NEGATIVE (NEGATIVE); PCP,Urine NEGATIVE (NEGATIVE); THC,Urine NEGATIVE (NEGATIVE)
[2018-04-06] MEDS ORDERED: Lactated Ringers 2,000 ML IV ONE (08:42)
[2018-04-06] MEDS ORDERED: XYLOCAINE 1% HCL 20 ML MDV IJ PRN (08:50)
[2018-04-06] MEDS ORDERED: Lactated Ringers 1,000 ML IV ONE (08:53)
[2018-04-06] MEDS ORDERED: OB EPIDURAL NAROPIN/SUFENTANIL IN NACL EPIDURAL PRN (08:53)
[2018-04-06] MEDS ORDERED: PITOCIN 30 UNITS/ LR 500 ML 500 ML IV SCH (09:00)
[2018-04-06] MEDS ORDERED: Lactated Ringers 1,000 ML IV SCH (09:00)
[2018-04-06 09:15] LABS: BASOPHIL % 0.2 % (0.0-0.4); Basophil (Absolute #) 0.04 (0-0.4); Eosinophil (Absolute #) 0.33 (0-0.5); Granulocytes % 80.6 % (36.0-66.0); Hematocrit 39.7 % (35-47); Hemoglobin 13.9 gm/dl (12.0-16.0); Lymphocyte (Absolute #) 1.63 (1.0-4.6); Lymphocytes % 9.7 % (24.0-44.0); Mean Cell Volume 93.6 fl (78-100); Mean Corpuscular Hemoglobin 32.8 pg (26-32); Mean Platelet Volume 10.6 fl (6-9.5); Monocyte (Absolute #) 1.26 (0.0-1.3); Monocytes % 7.5 % (0.0-12.0); Platelet Count 237 K/mm3 (150-450); Red Blood Count 4.24 M/mm3 (4.1-5.4); Red Cell Distribution Width 13.5 % (11.5-14.0); White Blood Count 16.9 K/mm3 (4.0-10.5)
[2018-04-06 10:57] VITALS: O2SAT 99
[2018-04-06] MEDS ORDERED: Anucort-HC SUPPOSITORY PR PRN (14:16)
[2018-04-06] MEDS ORDERED: Dulcolax 10 MG SUPP PR PRN (14:16)
[2018-04-06] MEDS ORDERED: Dermoplast Spray TP PRN (14:16)
[2018-04-06] MEDS ORDERED: NORCO 5/325 MG PO PRN (14:16)
[2018-04-06] MEDS ORDERED: TUCKS TP PRN (14:16)
[2018-04-06] MEDS ORDERED: CORTISONE 1% CREAM TP PRN (14:16)
[2018-04-06] MEDS ORDERED: Mylicon 80MG PO PRN (14:16)
[2018-04-06] MEDS ORDERED: Rhogam Plus 300 MCG IM ONE (15:00)
[2018-04-06] MEDS: MOTRIN 400 MG PO PRN (18:00)
[2018-04-06] MEDS: Colace 100 MG PO SCH (22:38)
[2018-04-07] MEDS: MOTRIN 400 MG PO PRN ×3 (00:05→19:00)
[2018-04-07 06:03] LABS: BASOPHIL % 0.2 % (0.0-0.4); Basophil (Absolute #) 0.03 (0-0.4); Eosinophil % 2.1 % (0.00-5.0); Eosinophil (Absolute #) 0.32 (0-0.5); Granulocytes % 71.9 % (36.0-66.0); Hemoglobin 12.1 gm/dl (12.0-16.0); Lymphocyte (Absolute #) 2.53 (1.0-4.6); Lymphocytes % 16.5 % (24.0-44.0); Mean Cell Volume 96.5 fl (78-100); Mean Corpuscular Hemoglobin 32.4 pg (26-32); Mean Corpuscular Hgb Concent. 33.6 g/dl (32-36); Mean Platelet Volume 10.7 fl (6-9.5); Monocyte (Absolute #) 1.42 (0.0-1.3); Monocytes % 9.3 % (0.0-12.0); Platelet Count 195 K/mm3 (150-450); Red Blood Count 3.73 M/mm3 (4.1-5.4); Red Cell Distribution Width 13.8 % (11.5-14.0); White Blood Count 15.3 K/mm3 (4.0-10.5)
[2018-04-07] MEDS: Colace 100 MG PO SCH ×2 (08:16→23:26)
[2018-04-07] MEDS ORDERED: Adacel Vial IM ONE (09:00)
[2018-04-07] MEDS ORDERED: FERREX 150 PO SCH (10:00)
[2018-04-07] MEDS: TYLENOL EXTRA STRENGTH 500 MG PO PRN ×2 (12:59→23:25)
[2018-04-08] MEDS: MOTRIN 400 MG PO PRN (06:16)
--- NOTE | 2018-04-08 08:15 | PCM.DS ---
Discharge Summary Date of Admission: 04/06/18 04:13 Admitting Physician: NEHAL YANES Primary Care Provider: NEHAL YANES Allergies Allergies lactase [From Dairy Aid] Adverse Reaction (Verified 04/06/18 04:48) Hospital Summary - Hospital Course Hospital Course: arrived in spot labor at 38+ weeks, doing great . had uncomplicated , bottle feeding. well bonded - Vitals & Intake/Output Vital Signs: Vital Signs Temperature 98.3 F 04/08/18 06:00 Pulse Rate 91 H 04/08/18 06:00 Respiratory Rate 18 04/07/18 14:00 Blood Pressure 114/65 04/08/18 06:00 O2 Sat by Pulse Oximetry 99 04/06/18 10:30 Intake & Output: Intake & Output 04/05/18 04/06/18 04/07/18 04/08/18 11:59 11:59 11:59 11:59 Intake Total 3283 Output Total 250 Balance 3033 Weight 77.111 kg - Lab Result Diagrams: 04/07/18 05:10 Discharge Exam General Appearance: no apparent distress, alert Skin Exam: normal color, warm, dry Respiratory Exam: normal breath sounds, lungs clear, No respiratory distress Cardiovascular Exam: regular rate/rhythm, normal heart sounds Gastrointestinal/Abdomen Exam: soft, No tenderness, No mass Extremity Exam: normal inspection, normal range of motion Final Diagnosis/Problem List - Final Discharge Diagnosis/Problem (1) Vaginal delivery Current Visit: Yes Status: Acute - Discharge Disposition: Home, Self-Care Condition: Stable Prescriptions: No Action Pnv No.95/Ferrous Fum/Folic AC [ Vitamins Tablet] 1 tab PO DAILY Follow up with: NEHAL YANES MD [Primary Care Provider] - 1 Week
[2018-04-08 12:34] VITALS: BP 110/73; PULSE 86
== END 2018-04-08 11:30 | disposition home or self-care (01) | DRG 807 ==
LOC: OB 04:13 → OBSVTOIN 04:13 → OB 08:09
PROVIDERS: ADMIT Family Medicine; ATTEND Family Medicine
PROC: 10E0XZZ Delivery of Products of Conception, External Approach (ICD-10-PCS; principal; 2018-04-06)
DX: O80 Encounter for full-term uncomplicated delivery (principal); Z37.0 Single live birth; Z3A.38 38 weeks gestation of pregnancy
CPT/HCPCS: 36415; 80307; 85025; 90715; 96372; G0378; J2590; J2795; A9270-GY

== ENCOUNTER 2018-04-19 01:36 | Emergency (ER) | payer OTHER ==
[2018-04-19] MEDS ORDERED: Sodium Chloride 0.9% 1000 ML 1,000 ML IV STA (02:06)
[2018-04-19] MEDS ORDERED: Sodium Chloride 0.9% 1000 ML 1,000 ML ONE (02:17)
[2018-04-19 02:42] LABS: BASOPHIL % 0.9 % (0.0-0.4); Basophil (Absolute #) 0.07 (0-0.4); Eosinophil % 3.3 % (0.00-5.0); Eosinophil (Absolute #) 0.27 (0-0.5); Granulocyte Absolute (ANC) 4.67 (1.4-6.9); Hematocrit 43.3 % (35-47); Lymphocyte (Absolute #) 2.45 (1.0-4.6); Lymphocytes % 29.9 % (24.0-44.0); Mean Cell Volume 93.7 fl (78-100); Mean Corpuscular Hemoglobin 32.5 pg (26-32); Mean Corpuscular Hgb Concent. 34.6 g/dl (32-36); Mean Platelet Volume 9.8 fl (6-9.5); Monocyte (Absolute #) 0.73 (0.0-1.3); Monocytes % 8.9 % (0.0-12.0); Platelet Count 312 K/mm3 (150-450); Red Blood Count 4.62 M/mm3 (4.1-5.4); Red Cell Distribution Width 12.4 % (11.5-14.0); White Blood Count 8.2 K/mm3 (4.0-10.5)
[2018-04-19 03:15] LABS: INFLUENZA A NEGATIVE (NEGATIVE); INFLUENZA B NEGATIVE (NEGATIVE); RESPIRATORY SYNCTIAL VIRUS NEGATIVE (Negative)
[2018-04-19 03:35] LABS: ALBUMIN 4.2 g/dL (3.5-5.0); ALKALINE PHOSPHATASE 120 U/L (38-126); ANION GAP 11.4 MEQ/L (5-15); BLOOD UREA NITROGEN 11 mg/dL (7-17); CHLORIDE 107 mmol/L (98-107); Calcium 9.4 mg/dL (8.4-10.2); Carbon Dioxide 25 mmol/L (22-30); Creatinine 1 0.79 mg/dL (0.52-1.04); Glucose 100 mg/dL (74-106); Potassium 3.3 mmol/L (3.5-5.1); SGOT/AST 38 U/L (14-36); SGPT/ALT 19 U/L (0-35); SODIUM 140 mmol/L (137-145); Total Protein 7.7 g/dL (6.3-8.2)
[2018-04-19] MEDS ORDERED: Klor Con 10 MEQ PO ONE ×2 (03:54→04:16)
[2018-04-19 04:32] LABS: Appearance CLEAR (CLEAR); Bilirubin NEGATIVE (NEGATIVE); Blood MODERATE Ery/ul (0-5); Glucose NEGATIVE (NEGATIVE); Ketones NEGATIVE (NEGATIVE); Leukocyte Esterase NEGATIVE (NEGATIVE); Mucus SLIGHT /HPF (NEGATIVE); Nitrite NEGATIVE (NEGATIVE); Protein,Urine Dip NEGATIVE (Negative); Specific Gravity 1.009 (1.005-1.025); Urobilinogen NEGATIVE mg/dL (0-1); WBC 0-2 /HPF (0-5)
--- NOTE | 2018-04-19 05:02 | ERPHSYRPT ---
- History of Present Illness Source: patient Exam Limitations: no limitations Patient Subjective Stated Complaint: PT REPORTS FEELING LIGHTHEADED LIKE SHE MIGHT PASS OUT FOR "A FEW DAYS, BUT GETTING WORSE". PT IS 13 DAYS VAGINAL DELIVERY, PT STILL HAVING DARK RED POST BLEEDING WITH OCCASSIONAL GOLF BALL SIZED CLOTS. Triage Nursing Assessment: PINK/WARM/DRY, RESP EASY, A&OX4, STEADY GAIT, PT DECLINED WHEELCHAIR TO ROOM. NO DISTRESS NOTED AT THIS TIME Physician History: Pt is a 28 y/o female that had her baby about two weeks ago. The pt states, she is still bleeding and having blood clots out. She did not feel well for the last few days, and felt very tired and dizzy. She felt that she was going to syncopize, today, while holding her baby, and decided to come t the ER for a check up. Pt states, her baby had RSV diagnosis recently, and hospitalized in [facility]. Timing/Duration: day(s) Precipitating Factors: none Loss of Consciousness: no loss of consciousness Charcter of event(s): felt faint, almost passed out Allergies/Adverse Reactions: lactase [From Dairy Aid] Adverse Reaction (Verified 04/19/18 01:41) Hx Tetanus, Diphtheria Vaccination/Date Given: Yes Hx Influenza Vaccination/Date Given: No Hx Pneumococcal Vaccination/Date Given: No Immunizations Up to Date: Yes - Past Medical History Pertinent Past Medical History: Yes Neurological History: No Pertinent History ENT History: No Pertinent History Cardiac History: No Pertinent History Respiratory History: No Pertinent History Endocrine Medical History: No Pertinent History Musculoskeletal History: No Pertinent History GI Medical History: Colitis History: No Pertinent History Psycho-Social History: Anxiety, Depression Female Reproductive Disorders: No Pertinent History - Past Surgical History Past Surgical History: No Neuro Surgical History: No Pertinent History Cardiac: No Pertinent History Respiratory: No Pertinent History Gastrointestinal: No Pertinent History Genitourinary: No Pertinent History Musculoskeletal: No Pertinent History Female Surgical History: No Pertinent History - Social History Smoking Status: Never smoker Exposure to second hand smoke: No Drug Use: none Patient Lives Alone: No - Female History Hx Now: No (13 DAYS POST-) - Review of Systems Constitutional: Fatigue, Lethargy Eyes: No Symptoms Ears, Nose, & Throat: No Symptoms Respiratory: No Cough, No Dyspnea Cardiac: No Chest Pain, No Edema, No Syncope Abdominal/Gastrointestinal: No Abdominal Pain, No Nausea, No Vomiting, No Diarrhea Genitourinary Symptoms: Vaginal Bleeding (since delievery) Musculoskeletal: No Back Pain, No Neck Pain Neurological: No Dizziness, No Focal Weakness, No Sensory Changes Physical Exam - Nursing Vital Signs Nursing Vital Signs: Initial Vital Signs Temperature 97.9 F 04/19/18 01:41 Pulse Rate 75 04/19/18 01:41 Respiratory Rate 16 04/19/18 01:41 Blood Pressure 116/81 04/19/18 01:41 O2 Sat by Pulse Oximetry 96 04/19/18 01:41 Pain Scale Pain Intensity 3 - Roman Coma Scale Best Eye Response (Roman): (4) open spontaneously Best Verbal Response (Magness): (5) oriented Best Motor Response (Magness): (6) obeys commands Roman Total: 15 - Physical Exam Eye Exam: bilateral eye: normal inspection, PERRL, EOMI Ears, Nose, Throat Exam: normal ENT inspection, pharynx normal, moist mucous membranes Neck Exam: normal inspection, non-tender, supple, full range of motion Respiratory: normal breath sounds, lungs clear, No chest tenderness, No respiratory distress Cardiovascular: regular rate/rhythm, capillary refill <2 sec, No murmur, No pulse deficit Gastrointestinal: soft, No tenderness, No distention, No mass Extremity Exam: normal inspection, normal range of motion, pelvis stable, No tenderness Mental Status: alert, oriented x 3, 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 Exam: normal speech, PERRL, No facial droop Motor/Sensory: no motor deficit, no sensory deficit, no pronator drift SpO2: 100 - Course Nursing assessment & vital signs reviewed: Yes Ordered Tests: Active Orders 24 hr Category Date Time Status IV Insertion STAT Care 04/19/18 02:06 Active Orthostatic Vital Signs STAT Care 04/19/18 02:06 Active CBC W DIFF Stat Lab 04/19/18 02:39 Completed CMP Stat Lab 04/19/18 02:39 Completed UA W/RFX UR CULTURE Stat Lab 04/19/18 04:24 Completed Medication Summary Discontinued Medications Generic Name Dose Route Start Last Admin Trade Name Freq PRN Reason Stop Dose Admin Sodium Chloride 1,000 mls @ 999 mls/hr 04/19/18 02:06 04/19/18 02:19 Sodium Chloride 0.9% 1000 Ml IV 04/19/18 03:06 999 mls/hr .Q1H1M STA Administration Sodium Chloride Confirm 04/19/18 02:17 Sodium Chloride 0.9% 1000 Ml Administered 04/19/18 02:18 Dose 1,000 mls @ ud .ROUTE .STK-MED ONE Potassium Chloride 40 meq 04/19/18 03:54 04/19/18 04:17 Klor Con 10 Meq PO 04/19/18 03:55 40 meq STAT ONE Administration Potassium Chloride Confirm 04/19/18 04:16 Klor Con 10 Meq Administered 04/19/18 04:17 Dose 40 meq PO .STK-MED ONE Lab/Rad Data: Laboratory Result Diagrams 04/19/18 02:39 04/19/18 02:39 Laboratory Results 04/19/18 04/19/18 04/19/18 Range/Units 04:24 02:39 02:39 WBC 8.2 (4.0-10.5) K/mm3 RBC 4.62 (4.1-5.4) M/mm3 Hgb 15.0 (12.0-16.0) gm/dl Hct 43.3 (35-47) % MCV 93.7 (78-100) fl MCH 32.5 H (26-32) pg MCHC 34.6 (32-36) g/dl RDW 12.4 (11.5-14.0) % Plt Count 312 (150-450) K/mm3 MPV 9.8 H (6-9.5) fl Gran % 57.0 (36.0-66.0) % Eos # (Auto) 0.27 (0-0.5) Absolute Lymphs (auto) 2.45 (1.0-4.6) Absolute Monos (auto) 0.73 (0.0-1.3) Lymphocytes % 29.9 (24.0-44.0) % Monocytes % 8.9 (0.0-12.0) % Eosinophils % 3.3 (0.00-5.0) % Basophils % 0.9 (0.0-0.4) % Absolute Granulocytes 4.67 (1.4-6.9) Basophils # 0.07 (0-0.4) Sodium 140 (137-145) mmol/L Potassium 3.3 L (3.5-5.1) mmol/L Chloride 107 (98-107) mmol/L Carbon Dioxide 25 (22-30) mmol/L Anion Gap 11.4 (5-15) MEQ/L BUN 11 (7-17) mg/dL Creatinine 0.79 (0.52-1.04) mg/dL Estimated GFR > 60.0 ML/MIN Glucose 100 (74-106) mg/dL Calcium 9.4 (8.4-10.2) mg/dL Total Bilirubin 0.50 (0.2-1.3) mg/dL AST 38 H (14-36) U/L ALT 19 (0-35) U/L Alkaline Phosphatase 120 (38-126) U/L Serum Total Protein 7.7 (6.3-8.2) g/dL Albumin 4.2 (3.5-5.0) g/dL Urine Color YELLOW (YELLOW) Urine Appearance CLEAR (CLEAR) Urine pH 6.0 (5-6) Ur Specific [place] 1.009 (1.005-1.025) Urine Protein NEGATIVE (Negative) Urine Ketones NEGATIVE (NEGATIVE) Urine Blood MODERATE (0-5) Subhash/ul Urine Nitrite NEGATIVE (NEGATIVE) Urine Bilirubin NEGATIVE (NEGATIVE) Urine Urobilinogen NEGATIVE (0-1) mg/dL Ur Leukocyte Esterase NEGATIVE (NEGATIVE) Urine WBC (Auto) 0-2 (0-5) /HPF Urine RBC (Auto) NONE (0-2) /HPF U Epithel Cells (Auto) NONE (FEW) /HPF Urine Bacteria (Auto) NONE (NEGATIVE) /HPF Urine Mucus (Auto) SLIGHT (NEGATIVE) /HPF Urine Culture Reflexed NO (NO) Urine Glucose NEGATIVE (NEGATIVE) mg/dL Influenza Type A Ag (NEGATIVE) Influenza Type B Ag (NEGATIVE) RSV (PCR) (Negative) 04/19/18 Range/Units 02:38 WBC (4.0-10.5) K/mm3 RBC (4.1-5.4) M/mm3 Hgb (12.0-16.0) gm/dl Hct (35-47) % MCV (78-100) fl MCH (26-32) pg MCHC (32-36) g/dl RDW (11.5-14.0) % Plt Count (150-450) K/mm3 MPV (6-9.5) fl Gran % (36.0-66.0) % Eos # (Auto) (0-0.5) Absolute Lymphs (auto) (1.0-4.6) Absolute Monos (auto) (0.0-1.3) Lymphocytes % (24.0-44.0) % Monocytes % (0.0-12.0) % Eosinophils % (0.00-5.0) % Basophils % (0.0-0.4) % Absolute Granulocytes (1.4-6.9) Basophils # (0-0.4) Sodium (137-145) mmol/L Potassium (3.5-5.1) mmol/L Chloride (98-107) mmol/L Carbon Dioxide (22-30) mmol/L Anion Gap (5-15) MEQ/L BUN (7-17) mg/dL Creatinine (0.52-1.04) mg/dL Estimated GFR ML/MIN Glucose (74-106) mg/dL Calcium (8.4-10.2) mg/dL Total Bilirubin (0.2-1.3) mg/dL AST (14-36) U/L ALT (0-35) U/L Alkaline Phosphatase (38-126) U/L Serum Total Protein (6.3-8.2) g/dL Albumin (3.5-5.0) g/dL Urine Color (YELLOW) Urine Appearance (CLEAR) Urine pH (5-6) Ur Specific [place] (1.005-1.025) Urine Protein (Negative) Urine Ketones (NEGATIVE) Urine Blood (0-5) Subhash/ul Urine Nitrite (NEGATIVE) Urine Bilirubin (NEGATIVE) Urine Urobilinogen (0-1) mg/dL Ur Leukocyte Esterase (NEGATIVE) Urine WBC (Auto) (0-5) /HPF Urine RBC (Auto) (0-2) /HPF U Epithel Cells (Auto) (FEW) /HPF Urine Bacteria (Auto) (NEGATIVE) /HPF Urine Mucus (Auto) (NEGATIVE) /HPF Urine Culture Reflexed (NO) Urine Glucose (NEGATIVE) mg/dL Influenza Type A Ag NEGATIVE (NEGATIVE) Influenza Type B Ag NEGATIVE (NEGATIVE) RSV (PCR) NEGATIVE (Negative) - Progress Progress: improved Progress Note: 04/19/18 05:01 Pt was given IVF, and labs were taken. Pt is not anemic, and her labs are normal. UA was normal as well. Pt did feel better post IVF. Resp panel was normal with no RSV. Pt is cleared for d/c to home. Pt does have an appoint with Dr Yanes for her and her baby in the beginning of the week, and she is encouraged to keep it. Discussed with .: Dung Will see patient in: office Counseled pt/family regarding: need for follow-up - Departure Time of Disposition: 05:03 Departure Disposition: Home Clinical Impression: Dizziness Condition: Stable Critical Care Time: No Referrals: NEHAL YANES MD [Primary Care Provider] - Additional Instructions: Drink pklenty of fluid. F/U with PCP as scheduled, next week.
[2018-04-19 05:08] VITALS: BP 115/74; PULSE 66; O2SAT 97
== END 2018-04-19 05:10 | disposition home or self-care (01) ==
LOC: ED 01:36
DX: R42 Dizziness and giddiness (principal); F41.9 Anxiety disorder, unspecified
CPT/HCPCS: 36000; 36415; 80053; 81001; 85025; 87631; 96360; 99284; A9270-GY

== ENCOUNTER 2020-12-03 02:22 | Emergency (ER) | payer BC, OTHER ==
[2020-12-03] MEDS ORDERED: PROTONIX 40 MG IV IV ONE ×2 (02:51→02:58)
[2020-12-03] MEDS ORDERED: Sodium Chloride 0.9% 1000 ML 1,000 ML IV STA (02:51)
[2020-12-03] MEDS ORDERED: Hydromorphone 1 mg/ml Injection IV ONE ×2 (02:51→06:28)
[2020-12-03] MEDS ORDERED: Zofran 4 MG/2 ML VIAL IV ONE (02:51)
[2020-12-03] MEDS ORDERED: Zofran 4 MG/2 ML VIAL ONE (02:58)
[2020-12-03] MEDS ORDERED: Hydromorphone 1 mg/ml Injection ONE ×2 (02:59→06:20)
[2020-12-03] MEDS ORDERED: Sodium Chloride 0.9% 1000 ML 1,000 ML ONE (02:59)
[2020-12-03 03:23] LABS: Absolute Neutrophil Ct (ANC) 13.25 (1.4-6.9); BASOPHIL % 0.2 % (0.0-0.4); Basophil (Absolute #) 0.04 (0-0.4); Eosinophil % 2.1 % (0.00-5.0); Eosinophil (Absolute #) 0.34 (0-0.5); Hematocrit 46.7 % (35-47); Hemoglobin 16.1 gm/dl (12.0-16.0); Lymphocyte (Absolute #) 1.16 (1.0-4.6); Lymphocytes % 7.2 % (24.0-44.0); Mean Cell Volume 90.9 fl (78-100); Mean Corpuscular Hemoglobin 31.3 pg (26-32); Mean Corpuscular Hgb Concent. 34.5 g/dl (32-36); Mean Platelet Volume 10.4 fl (7.5-11.0); Monocyte (Absolute #) 1.35 (0.0-1.3); Monocytes % 8.4 % (0.0-12.0); Neutrophil % 82.1 % (36.0-66.0); Platelet Count 271 K/mm3 (150-450); Red Blood Count 5.14 M/mm3 (4.1-5.4); White Blood Count 16.1 K/mm3 (4.0-10.5)
[2020-12-03 03:26] LABS: Appearance SLIGHTLY CLOUDY (CLEAR); Bilirubin NEGATIVE (NEGATIVE); Blood NEGATIVE Ery/ul (0-5); Epithelial Cells RARE /HPF (FEW); Glucose NEGATIVE (NEGATIVE); Ketones NEGATIVE (NEGATIVE); Leukocyte Esterase NEGATIVE (NEGATIVE); Mucus SLIGHT /HPF (NEGATIVE); Nitrite NEGATIVE (NEGATIVE); Protein,Urine Dip NEGATIVE (Negative); Specific Gravity 1.028 (1.005-1.025); Urobilinogen NEGATIVE mg/dL (0-1)
[2020-12-03 03:31] LABS: ALBUMIN 4.7 g/dL (3.5-5.0); ALKALINE PHOSPHATASE 63 U/L (38-126); ANION GAP 14.9 MEQ/L (5-15); BLOOD UREA NITROGEN 10 mg/dL (7-17); CHLORIDE 105 mmol/L (98-107); Calcium 9.3 mg/dL (8.4-10.2); Carbon Dioxide 24 mmol/L (22-30); Creatinine 1 0.75 mg/dL (0.52-1.04); EST GLOMERULAR FILTRATION RATE > 60.0 ML/MIN; Glucose 102 mg/dL (74-106); LIPASE 133 U/L (23-300); Potassium 3.3 mmol/L (3.5-5.1); SGOT/AST 20 U/L (14-36); SGPT/ALT 9 U/L (0-35); SODIUM 141 mmol/L (137-145)
[2020-12-03] MEDS ORDERED: Levofloxacin 500MG/100ML D5W 500 MG/100 ML BAG IV STA (05:29)
[2020-12-03] MEDS ORDERED: FLAGYL 500 MG IVPB 500 MG/100 ML BAG IV STA (05:31)
[2020-12-03] MEDS ORDERED: FLAGYL 500 MG IVPB 500 MG/100 ML BAG IV ONE (05:32)
[2020-12-03] MEDS ORDERED: Levofloxacin 500MG/100ML D5W 500 MG/100 ML BAG IV ONE (05:32)
--- NOTE | 2020-12-03 06:36 | ERPHSYRPT ---
- History of Present Illness Time Seen by Provider: 12/03/20 02:51 Historian: patient Exam Limitations: no limitations Patient Subjective Stated Complaint: pt states "I have been having liquid diarrhea and nausea since 7." Triage Nursing Assessment: pt ambulated into the er; pt is axo x4; c/o N/D; pt states 8/10 pain to epigastric region; pt denies vomiting; pt states diarrhea q15 minutes; pt denies any problems with urination; abd is flat, soft; tenderness to epigastric region with palpation; hyperactive bowel sounds in all quads; pt states that she took OTC pain reliever and pepto tonight with no relief; vitals wnl Physician History: 30 years old female presented in the ER with chief complaint of epigastric pain sudden onset around 7 PM with associated nausea and multiple episodes of loose stool without hematochezia. Patient reports moderate to severe intensity sharp cramping pain more in the epigastric area without any radiation, aggravated with diarrhea. Has constant feeling of nausea without vomiting. No fever or chills reported. Denies any sick contact. Timing/Duration: hour(s) (7), intermittent, sudden, worse Activities at Onset: rest Quality: sharpness Abdominal Pain Onset Location: epigastric Pain Radiation: no radiation Severity of Pain-Max: severe Severity of Pain-Current: severe Associated Symptoms: diarrhea, fatigue, nausea Previous symptoms: no prior history Allergies/Adverse Reactions: lactase [From [employer]] Adverse Reaction (Verified 12/03/20 02:30) Hx Tetanus, Diphtheria Vaccination/Date Given: Yes (2018) Hx Influenza Vaccination/Date Given: No Hx Pneumococcal Vaccination/Date Given: No Travel Risk - International Travel Have you traveled outside of the country in past 3 weeks: No - Coronavirus Screening Are you exhibiting any of the following symptoms?: Yes Symptoms: Vomiting/Diarrhea Close contact with a COVID-19 positive Pt in past 14-21 Days: No - Vaccine Status Have you recieved a Covid-19 vaccination: Yes 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[employer]: [employer] - Vaccination Dates Date of 2cond Vaccination (if applicable): 07/26 - Review of Systems Constitutional: Fatigue, Weakness Eyes: No Symptoms Ears, Nose, & Throat: No Symptoms Respiratory: No Symptoms Cardiac: No Symptoms Abdominal/Gastrointestinal: Abdominal Pain, Nausea, Diarrhea Genitourinary Symptoms: No Symptoms Musculoskeletal: No Symptoms Skin: No Symptoms Neurological: No Symptoms Psychological: No Symptoms Endocrine: No Symptoms Hematologic/Lymphatic: No Symptoms Immunological/Allergic: No Symptoms - Past Medical History Pertinent Past Medical History: Yes Neurological History: No Pertinent History ENT History: No Pertinent History Cardiac History: No Pertinent History Respiratory History: No Pertinent History Endocrine Medical History: No Pertinent History Musculoskeletal History: No Pertinent History GI Medical History: Colitis History: No Pertinent History Psycho-Social History: Anxiety, Depression Female Reproductive Disorders: No Pertinent History - Past Surgical History Past Surgical History: No Neuro Surgical History: No Pertinent History Cardiac: No Pertinent History Respiratory: No Pertinent History Gastrointestinal: No Pertinent History Genitourinary: No Pertinent History Musculoskeletal: No Pertinent History Female Surgical History: No Pertinent History - Social History Smoking Status: Never smoker Exposure to second hand smoke: No Drug Use: none Patient Lives Alone: No - Female History Hx Now: (unkn) - Nursing Vital Signs Nursing Vital Signs: Initial Vital Signs Temperature 98.1 F 12/03/20 02:30 Pulse Rate 100 H 12/03/20 02:30 Respiratory Rate 14 12/03/20 02:30 Blood Pressure 113/80 12/03/20 02:30 O2 Sat by Pulse Oximetry 98 12/03/20 02:30 Pain Scale Pain Intensity 7 - Physical Exam General Appearance: no apparent distress, alert Eye Exam: PERRL/EOMI, eyes nml inspection Ears, Nose, Throat Exam: normal ENT inspection Neck Exam: normal inspection, supple, full range of motion Respiratory Exam: normal breath sounds, lungs clear Cardiovascular Exam: regular rate/rhythm, normal heart sounds Gastrointestinal/Abdomen Exam: soft, tenderness (Epigastric), No normal bowel sounds (Hypoactive), No guarding, No rebound Back Exam: normal inspection, normal range of motion Extremity Exam: normal inspection, normal range of motion Neurologic Exam: alert, oriented x 3, cooperative Skin Exam: normal color SpO2 Interpretation: normal SpO2: 100 O2 Delivery: Room Air Ordered Tests: Active Orders 24 hr Category Date Time Status IV Insertion STAT Care 12/03/20 02:51 Active NPO (ED) STAT Care 12/03/20 02:51 Active ABDOMEN AND PELVIS W CONTRAST [CT] Stat Exams 12/03/20 02:52 Taken CBC W DIFF Stat Lab 12/03/20 03:06 Completed CMP Stat Lab 12/03/20 03:06 Completed HCG,QUALITATIVE URINE Stat Lab 12/03/20 03:06 Completed LIPASE Stat Lab 12/03/20 03:06 Completed UA W/RFX UR CULTURE Stat Lab 12/03/20 03:06 Completed Medication Summary Discontinued Medications Generic Name Dose Route Start Last Admin Trade Name Cesar PRN Reason Stop Dose Admin Hydromorphone HCl 0.5 mg 12/03/20 02:51 12/03/20 03:00 Hydromorphone 1 Mg/1ml Inj 1 Mg/Ml Syringe IV 12/03/20 02:52 0.5 mg STAT ONE Administration Hydromorphone HCl Confirm 12/03/20 02:59 Hydromorphone 1 Mg/1ml Inj 1 Mg/Ml Syringe Administered 12/03/20 03:00 Dose 1 mg .ROUTE .STK-MED ONE Hydromorphone HCl Confirm 12/03/20 06:20 Hydromorphone 1 Mg/1ml Inj 1 Mg/Ml Syringe Administered 12/03/20 06:21 Dose 1 mg .ROUTE .STK-MED ONE Hydromorphone HCl 0.5 mg 12/03/20 06:28 Hydromorphone 1 Mg/1ml Inj 1 Mg/Ml Syringe IV 12/03/20 06:29 STAT ONE Sodium Chloride 1,000 mls @ 999 mls/hr 12/03/20 02:51 12/03/20 04:06 Sodium Chloride 0.9% 1000 Ml IV 12/03/20 03:51 Infused .Q1H1M STA Infusion Sodium Chloride Confirm 12/03/20 02:59 Sodium Chloride 0.9% 1000 Ml Administered 12/03/20 03:00 Dose 1,000 mls @ ud .ROUTE .STK-MED ONE Levofloxacin/Dextrose 500 mg in 100 mls @ 100 mls/hr 12/03/20 05:29 12/03/20 05:37 Levofloxacin 500mg/100ml D5w IV 12/03/20 06:28 100 ml/hr STAT STA 100 mls/hr Administration Metronidazole 500 mg in 100 mls @ 200 mls/hr 12/03/20 05:31 12/03/20 06:21 Flagyl 500 Mg Ivpb IV 12/03/20 06:00 Infused STAT STA Infusion Metronidazole Confirm 12/03/20 05:32 Flagyl 500 Mg Ivpb Administered 12/03/20 05:33 Dose 500 mg in 100 mls @ ud IV .STK-MED ONE Levofloxacin/Dextrose Confirm 12/03/20 05:32 Levofloxacin 500mg/100ml D5w Administered 12/03/20 05:33 Dose 500 mg in 100 mls @ ud IV .STK-MED ONE Ondansetron HCl 4 mg 12/03/20 02:51 12/03/20 03:00 Ondansetron Hcl 4 Mg/2 Ml Vial IV 12/03/20 02:52 4 mg STAT ONE Administration Ondansetron HCl Confirm 12/03/20 02:58 Ondansetron Hcl 4 Mg/2 Ml Vial Administered 12/03/20 02:59 Dose 4 mg .ROUTE .STK-MED ONE Pantoprazole Sodium 40 mg 12/03/20 02:51 12/03/20 03:00 Pantoprazole 40 Mg Vial IV 12/03/20 02:52 40 mg STAT ONE Administration Pantoprazole Sodium Confirm 12/03/20 02:58 Pantoprazole 40 Mg Vial Administered 12/03/20 02:59 Dose 40 mg IV .STK-MED ONE Lab/Rad Data: Laboratory Result Diagrams 12/03/20 03:06 12/03/20 03:06 Laboratory Results 12/03/20 12/03/20 12/03/20 Range/Units 03:06 03:06 03:06 WBC 16.1 H (4.0-10.5) K/mm3 RBC 5.14 (4.1-5.4) M/mm3 Hgb 16.1 H (12.0-16.0) gm/dl Hct 46.7 (35-47) % MCV 90.9 (78-100) fl MCH 31.3 (26-32) pg MCHC 34.5 (32-36) g/dl RDW 13.0 (11.5-14.0) % Plt Count 271 (150-450) K/mm3 MPV 10.4 (7.5-11.0) fl Gran % 82.1 H (36.0-66.0) % Eos # (Auto) 0.34 (0-0.5) Absolute Lymphs (auto) 1.16 (1.0-4.6) Absolute Monos (auto) 1.35 H (0.0-1.3) Lymphocytes % 7.2 L (24.0-44.0) % Monocytes % 8.4 (0.0-12.0) % Eosinophils % 2.1 (0.00-5.0) % Basophils % 0.2 (0.0-0.4) % Absolute Granulocytes 13.25 H (1.4-6.9) Basophils # 0.04 (0-0.4) Sodium 141 (137-145) mmol/L Potassium 3.3 L (3.5-5.1) mmol/L Chloride 105 (98-107) mmol/L Carbon Dioxide 24 (22-30) mmol/L Anion Gap 14.9 (5-15) MEQ/L BUN 10 (7-17) mg/dL Creatinine 0.75 (0.52-1.04) mg/dL Estimated GFR > 60.0 ML/MIN Glucose 102 (74-106) mg/dL Calcium 9.3 (8.4-10.2) mg/dL Total Bilirubin 0.80 (0.2-1.3) mg/dL AST 20 (14-36) U/L ALT 9 (0-35) U/L Alkaline Phosphatase 63 (38-126) U/L Serum Total Protein 8.0 (6.3-8.2) g/dL Albumin 4.7 (3.5-5.0) g/dL Lipase 133 (23-300) U/L Urine Color YELLOW (YELLOW) Urine Appearance SLIGHTLY CLOUDY (CLEAR) Urine pH 5.0 (5-6) Ur Specific [place] 1.028 (1.005-1.025) Urine Protein NEGATIVE (Negative) Urine Ketones NEGATIVE (NEGATIVE) Urine Blood NEGATIVE (0-5) Subhash/ul Urine Nitrite NEGATIVE (NEGATIVE) Urine Bilirubin NEGATIVE (NEGATIVE) Urine Urobilinogen NEGATIVE (0-1) mg/dL Ur Leukocyte Esterase NEGATIVE (NEGATIVE) Urine WBC (Auto) NONE (0-5) /HPF Urine RBC (Auto) NONE (0-2) /HPF U Epithel Cells (Auto) RARE (FEW) /HPF Urine Bacteria (Auto) NONE (NEGATIVE) /HPF Urine Mucus (Auto) SLIGHT (NEGATIVE) /HPF Urine Culture Reflexed NO (NO) Urine Glucose NEGATIVE (NEGATIVE) mg/dL Urine HCG, Qual (Negative) 12/03/20 Range/Units 03:06 WBC (4.0-10.5) K/mm3 RBC (4.1-5.4) M/mm3 Hgb (12.0-16.0) gm/dl Hct (35-47) % MCV (78-100) fl MCH (26-32) pg MCHC (32-36) g/dl RDW (11.5-14.0) % Plt Count (150-450) K/mm3 MPV (7.5-11.0) fl Gran % (36.0-66.0) % Eos # (Auto) (0-0.5) Absolute Lymphs (auto) (1.0-4.6) Absolute Monos (auto) (0.0-1.3) Lymphocytes % (24.0-44.0) % Monocytes % (0.0-12.0) % Eosinophils % (0.00-5.0) % Basophils % (0.0-0.4) % Absolute Granulocytes (1.4-6.9) Basophils # (0-0.4) Sodium (137-145) mmol/L Potassium (3.5-5.1) mmol/L Chloride (98-107) mmol/L Carbon Dioxide (22-30) mmol/L Anion Gap (5-15) MEQ/L BUN (7-17) mg/dL Creatinine (0.52-1.04) mg/dL Estimated GFR ML/MIN Glucose (74-106) mg/dL Calcium (8.4-10.2) mg/dL Total Bilirubin (0.2-1.3) mg/dL AST (14-36) U/L ALT (0-35) U/L Alkaline Phosphatase (38-126) U/L Serum Total Protein (6.3-8.2) g/dL Albumin (3.5-5.0) g/dL Lipase (23-300) U/L Urine Color (YELLOW) Urine Appearance (CLEAR) Urine pH (5-6) Ur Specific [place] (1.005-1.025) Urine Protein (Negative) Urine Ketones (NEGATIVE) Urine Blood (0-5) Subhash/ul Urine Nitrite (NEGATIVE) Urine Bilirubin (NEGATIVE) Urine Urobilinogen (0-1) mg/dL Ur Leukocyte Esterase (NEGATIVE) Urine WBC (Auto) (0-5) /HPF Urine RBC (Auto) (0-2) /HPF U Epithel Cells (Auto) (FEW) /HPF Urine Bacteria (Auto) (NEGATIVE) /HPF Urine Mucus (Auto) (NEGATIVE) /HPF Urine Culture Reflexed (NO) Urine Glucose (NEGATIVE) mg/dL Urine HCG, Qual NEGATIVE (Negative) - Progress Progress: improved, pain not gone completely, re-examined Progress Note: 12/03/20 06:33 30 years old is evaluated for epigastric pain with nausea and diarrhea. She is given fluids and pain medication, on reevaluation feeling better but pain is not completely resolved. She has a white count of 16, mildly low potassium and negative chemistries otherwise. CT showed distal small bowel inflammation/edema consistent with enteritis and some mesenteric edema as well. She is given a dose of Levaquin and Flagyl. Discussed with patient's results of work-up today and recommended observation admission but she wants to go home. She is given oral Cipro and Flagyl along with Zofran. Discussed signs symptoms of worsening needing return to ER which she seems understanding. Counseled pt/family regarding: lab results, diagnosis, need for follow-up, rad results - Departure Departure Disposition: Home Clinical Impression: Enteritis Condition: Stable Critical Care Time: No Referrals: NEHAL YANES MD [Primary Care Provider] - Follow Up with PCP/3 days Instructions: Diarrhea in Adolescents and Adults Additional Instructions: Drink plenty of fluids to keep yourself well-hydrated. Take Zofran as needed. Take Tylenol/ibuprofen as needed for pain. Continue with antibiotics. Follow- up with primary care for reevaluation. Return to ER for any worsening pain/diarrhea/persistent vomiting/fever chills etc. Prescriptions: Ondansetron ODT 4 MG [Zofran Odt 4 mg] 4 mg PO Q6H PRN PRN #7 tablet PRN Reason: Vomiting Ciprofloxacin [Cipro 500 MG] 500 mg PO BID #14 tablet Metronidazole 500 mg [Flagyl 500 MG] 500 mg PO TID #21 tablet
[2020-12-03 06:42] VITALS: BP 101/64; PULSE 96; O2SAT 99
[2020-12-03] MEDS ORDERED: ZOFRAN ODT 4 MG PO ONE (06:51)
[2020-12-03] MEDS ORDERED: ZOFRAN ODT 4 MG ONE (06:52)
--- NOTE | 2020-12-03 08:50 | XRAY ---
Indication: Abdomen pain, nausea, vomiting, and diarrhea. Multiple contiguous axial images obtained through the abdomen and pelvis using 80 cc Isovue 370 contrast. Comparison: January 18, 2017. Lung bases are clear. Heart is not enlarged. Noncontrasted stomach and bowel loops appear nonobstructed with normal appendix. Ileal bowel loops now demonstrates mild fluid distention with mild circumferential wall thickening/stranding favoring enteritis. Small cul-de-sac free fluid either reactive versus ruptured/leaking ovary cyst. No walled off fluid collection or free air. Remaining liver, gallbladder, pancreas, spleen, adrenal glands, kidneys, ureters, bladder, uterus, and aorta are unremarkable. No pathologic retroperitoneal lymphadenopathy. Osseous structures intact. Impression: New findings as detailed favoring enteritis with small cul-de-sac free fluid. Comment: Preliminary interpretation made by [facility]. No critical discrepancy.
== END 2020-12-03 07:30 | disposition home or self-care (01) ==
LOC: ED 02:22
DX: K52.9 Noninfective gastroenteritis and colitis, unspecified (principal)
CPT/HCPCS: 36000; 36415; 74177; 80053; 81001; 83690; 84703; 85025; 96360; 96374; 96376; 99285; J1170; J1956; J2405; Q0162